=== PATIENT | male | born 1985 | race Caucasian/White ===

== ENCOUNTER 2017-01-18 21:48 | Outpatient (CLI) ==
[2014-05-16 02:31] VITALS: BMI 21.4
== END 2017-01-18 21:49 | disposition home or self-care (01) ==
LOC: AMBL 21:48
PROVIDERS: ATTEND Emergency Medicine
DX: R07.9 Chest pain, unspecified (principal); R20.0 Anesthesia of skin; I25.2 Old myocardial infarction

== ENCOUNTER 2017-07-24 23:15 | Outpatient (CLI) ==
[2014-05-16 02:31] VITALS: BMI 21.4
== END 2017-07-24 23:16 | disposition left against medical advice (07) ==
LOC: AMBL 23:15
PROVIDERS: ATTEND Family Medicine
DX: M54.9 Dorsalgia, unspecified (principal); W10.9XXA Fall (on) (from) unspecified stairs and steps, initial encounter

== ENCOUNTER 2018-01-26 11:50 | Emergency (ER) ==
[2018-01-26 11:50] VITALS: BMI 21.4
[2018-01-26 12:00] VITALS: BP 108/49; TEMP 99.9
[2018-01-26] MEDS ORDERED: DILAUDID IM STA (12:44)
--- NOTE | 2018-01-26 12:48 | ED.PDOC ---
General ED Provider: Dr. ROSIE QUINONES Chief Complaint: Back Pain Stated Complaint: Severe lower back pain . Sustained multi level Transverse process fractures of Lumbar spine (L2-L5) while working on 01/19/2018. Was treated at [facility] ER and released with outpatient follow up with Dr Yuen- Neurosurgeon. Time Seen by Physician: 12:30 Mode of Arrival: Wheelchair Information Source: Patient Exam Limitations: No limitations Referred to ED by: PCP Nursing and Triage Documentation Reviewed and Agree: Yes Reviewed sepsis parameters & appropriate labs ordered?: Yes System Inflammatory Response Syndrome: Not Applicable Sepsis Protocol: For patient's 13 years and over: Temp is 96.8 and below OR 101 and greater Pulse >90 BPM Resp >20/minute Acutely Altered Mental Status Are patient's symptoms suggestive of a new infection, such as: -Pneumonia -Skin, Soft Tissue -Endocarditis -UTI -Bone, Joint Infection -Implantable Device -Acute Abdominal Infection -Wound Infection -Meningitis -Blood Stream Catheter Infection -Unknown System Inflammatory Response Syndrome: Not Applicable Trauma/Injury Complaint Exam - Truncal Trauma Complaint/Exam Location of Pain: Reports: Lower (LUMBAR SPINE-RT SIDE), Posterior, Flank Onset: 1 WEEK Symptoms Are: Still present Onset of Pain: Reports: Immediate Initial Severity: Moderate Current Severity: Moderate Mechanism: Reports: Direct blow, Fall, Twisted Aggravating: Reports: Movement, Deep breathing Alleviating: Reports: Rest, Other (PRESCRIPTION ANALGESICS; 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 Denies: Similar episode Related Surgical History: Reports: None Immobilization Removed Post Exam: No Vertebral Tenderness Present: Yes Vertebral Deformity Present: No Trachial Deviation Present: No JVD Present: No Crepitus Present: No Diminished Breath Sounds: No Reproducible Pain at: RT LUMBAR SPINE REGION Muffled Heart Sounds Present: No Paradoxical Chest Wall Movement Present: No Abdominal Rigidity Present: No Referred Shoulder Pain (Kehr's Sign) Present: No Skin Findings: Present: Normal findings Differential Diagnoses: Thoracic Strain, Lumbar Sprain Review of Systems - Review Of Systems Constitutional: Reports: No symptoms Eyes: Reports: No symptoms Ears, Nose, Mouth, Throat: Reports: No symptoms Respiratory: Reports: No symptoms Cardiac: Reports: No symptoms GI: Reports: No symptoms : Reports: No symptoms Musculoskeletal: Reports: Back pain, Joint pain, Muscle pain Skin: Reports: No symptoms Neurological: Reports: No symptoms Endocrine: Reports: No symptoms Hematologic/Lymphatic: Reports: No symptoms All Other Systems: Reviewed and Negative Past Medical History - Past Medical History Previously Healthy: Yes Endocrine: Reports: None Cardiovascular: Reports: None Respiratory: Reports: None, Bronchitis, Other (SINUSITIS) Hematological: Reports: None Gastrointestinal: Reports: None Genitourinary: Reports: None Neuro/Psych: Reports: None Musculoskeletal: Reports: None, Back Pain Cancer: Reports: None - Surgical History General Surgical History: Reports: None - Family History Family History: Reports: None - Social History Smoking Status: Current every day smoker, Heavy tobacco smoker Hx Substance Use: No Alcohol Screening: None - Immunizations Tetanus Shot up to Date: Yes (01/19/18) Physical Exam - Physical Exam Appearance: Well-appearing, No pain distress (IN MODERATELY SEVERE PAIN), Well- nourished Ill-appearing: Mild Pain Distress: Moderate Eyes: SERG, EOMI, Conjunctiva clear ENT: Ears normal, Nose normal, Oropharynx normal Respiratory: Airway patent, Breath sounds clear, Breath sounds equal, Respirations nonlabored Cardiovascular: RRR, Pulses normal, No rub, No murmur GI/: Soft, Nontender, No masses, Bowel sounds normal, No Organomegaly, Splenomegaly Musculoskeletal: Normal strength, No edema, No calf tenderness, Limited ROM ( MODERATE PAIN IN RT LUMBAR SPINE REGION-BRACE INTACT) Skin: Warm, Dry, Normal color Neurological: Sensation intact, Motor intact, Reflexes intact, Cranial nerves intact, Alert, Oriented Psychiatric: Affect appropriate, Mood appropriate Critical Care Note - Critical Care Note Total Time (mins): 30 (MONITORED RESPONSE TO PAIN MED ADMINISTRATION ) Course - Course Orders, Labs, Meds: Orders Category Date Time Status Hydromorphone HCl [Dilaudid] MEDS 01/26/18 12:44 Discontinued 1 mg IM ONCE STA Medications Discontinued Medications Generic Name Dose Route Start Last Admin Trade Name Freq PRN Reason Stop Dose Admin Hydromorphone HCl 1 mg 01/26/18 12:44 01/26/18 13:04 Dilaudid IM 01/26/18 12:45 1 mg ONCE STA Administration Vital Signs: Temp Pulse Resp BP Pulse Ox 01/26/18 11:51 99.9 F H 100 H 20 108/49 L 97 Departure - Departure Time of Disposition: 14:00 Disposition: HOME SELF-CARE Discharge Problem: Low back pain, Lumbar transverse process fracture Instructions: Back Pain (ED) Condition: Fair Pt referred to PMD for follow-up: Yes (CALL FOR PCP APT, KEEP APT WITH NEUROLOGIST) IPMP verified?: No Prescriptions: Oxycodone HCl/Acetaminophen [Percocet 10-325 mg Tablet] 1 each PO Q6HR PRN #40 tablet PRN Reason: Severe lower back pain Allergies/Adverse Reactions: Allergies No Known Allergies Allergy (Verified 01/26/18 12:01) Home Medications: Ambulatory Orders Diclofenac Sodium 75 mg PO BID 01/26/18 Oxycodone HCl/Acetaminophen [Percocet 10-325 mg Tablet] 1 each PO Q6HR PRN #40 tablet 01/26/18 Disposition Discussed With: Patient, Family
== END 2018-01-26 14:10 | disposition home or self-care (01) ==
LOC: ED 11:50
DX: M54.5 Low back pain (principal); S32.029A Unspecified fracture of second lumbar vertebra, initial encounter for closed fracture; S32.039A Unspecified fracture of third lumbar vertebra, initial encounter for closed fracture; S32.049A Unspecified fracture of fourth lumbar vertebra, initial encounter for closed fracture; S32.059A Unspecified fracture of fifth lumbar vertebra, initial encounter for closed fracture; F17.210 Nicotine dependence, cigarettes, uncomplicated; X58.XXXA Exposure to other specified factors, initial encounter; Y93.9 Activity, unspecified; Y99.0 Civilian activity done for income or pay
CPT/HCPCS: 96372; 99283